=== PATIENT | male | born 1940 | race Caucasian/White ===

== ENCOUNTER 2018-12-31 10:56 | Emergency (ER) | payer BC ==
[~2018-12-31] VITALS: Ht 182.9 cm; Wt 75.7 kg
[2018-12-31] MEDS ORDERED: CLINDAMYCIN PHOS 900MG/ 50ML 50 ML IV STA (11:10)
[2018-12-31] MEDS ORDERED: HYDROCODONE/APAP 10MG-325MG TAB PO ONE (11:30)
[2018-12-31 11:32] LABS: BASOPHILS % 0.5 % (0.0-1.0); EOSINOPHILS # (AUTO) 0.1 (0.0-0.4); EOSINOPHILS % 1.6 % (0.0-6.0); HEMATOCRIT 38.7 % (38.2-49.6); HEMOGLOBIN 12.5 g/dL (14.0-18.0); LYMPHOCYTES # (AUTO) 1.8 (1.0-3.2); LYMPHOCYTES % 22.9 % (18.0-39.1); MEAN CORPUSCULAR HEMOGLOBIN 29.3 pg (28-32); MEAN CORPUSCULAR HGB CONC 32.3 g/dL (31-35); MEAN CORPUSCULAR VOLUME 90.8 fL (81-99); MONOCYTES # (AUTO) 0.7 (0.2-0.8); MONOCYTES % 9.2 % (4.4-11.3); NEUTROPHILS # (AUTO) 5.2 (2.1-6.9); NEUTROPHILS % 65.4 % (38.7-80.0); PLATELET COUNT 224 x10e3/uL (140-360); RED BLOOD COUNT 4.26 x10e6/uL (4.3-5.7); RED CELL DISTRIBUTION WIDTH 13.7 % (11.7-14.4)
--- NOTE | 2018-12-31 11:40 | NUR ---
Attempted to give ordered [place] to Pt at this time to medicate for pain control, son states "That's not going to work for him", informed that medication is for pain management, son continues to state "He can take that at home, but not here, he needs Tylenol #3", informed that communication would be made with Dr. Urias and Tiffany to change medicaiton order.
[2018-12-31] MEDS ORDERED: ACETAMINOPHEN/CODEINE 300MG - 30MG TAB PO ONE (11:45)
--- NOTE | 2018-12-31 11:45 | NUR ---
Received orders for Tylenol #3 for pain control, returned [place] via [facility], screen did not prompt for co-sign witness but DARIUSZ Odonnell was present at the time of return. Will medicate Pt for pain when he returns from X-Ray.
[2018-12-31 11:53] LABS: ALANINE AMINOTRANSFERASE 12 IU/L (0-55); ALBUMIN 3.5 g/dL (3.5-5.0); ALKALINE PHOSPHATASE 72 IU/L (40-150); ANION GAP 12.1 mmol/L (8-16); BLOOD UREA NITROGEN 11 mg/dL (7-26); BUN/CREATININE RATIO 10 (6-25); CALCIUM 8.8 mg/dL (8.4-10.2); CARBON DIOXIDE 26 mmol/L (22-29); CHLORIDE 101 mmol/L (98-107); CREATININE, SERUM 1.07 mg/dL (0.72-1.25); EST GLOMERULAR FILTRATION RATE > 60 ML/MIN (60-); GLUCOSE 93 mg/dL (74-118); POTASSIUM 4.1 mmol/L (3.5-5.1); SODIUM 135 mmol/L (136-145)
--- NOTE | 2018-12-31 12:11 | Diagnostic Imaging Report ---
EXAMINATION: LOWER LEG LEFT INDICATION: Pain COMPARISON: None FINDINGS: AP and lateral views of the tibia and fibula demonstrate no acute fracture or dislocation. Soft tissue swelling about the ankle, medial greater than lateral. Scattered athetotic vascular calcifications. No substantial degenerative change. IMPRESSION: No acute osseous injury. Left ankle soft tissue swelling, more pronounced medially. Signed by: Jud Dow MD on 12/31/2018 12:08 PM
[2018-12-31 12:31] VITALS: BP 127/54
== END 2018-12-31 12:50 | disposition home or self-care (01) ==
LOC: ER 10:56
DX: L03.116 Cellulitis of left lower limb (principal); I87.2 Venous insufficiency (chronic) (peripheral); I87.1 Compression of vein
CPT/HCPCS: 36415; 80053; 85025; 99284